=== PATIENT | male | born 1990 ===

== ENCOUNTER 2017-04-27 14:44 | Inpatient (IN) | payer MEDICAID ==
--- NOTE | 2017-04-27 16:37 | ED PDOC ---
HPI: Psych/Substance Abuse Time Seen by Provider: 04/27/17 16:33 Chief Complaint (Nursing): Psychiatric Evaluation Chief Complaint (Provider): pysch eval Additional Complaint(s): 27yo M in ED for eval of depression without SI/HI/hallucinATION. states that he ran our of his pysch medication(ativan) because his insurance doesn't cover the area where he works. when asked if he works he states he currently unemployed- states he has medicaid. states that the insurance is only [place] funded but states he lived in [place] for the past couple fo months and just moved back to [place] then changes story stating he has been living with a friend in [place] for the past 3 months. Pt is alert and oriented. normal speech patterns. Past Medical History Reviewed: Historical Data, Nursing Documentation, Vital Signs Vital Signs: Last Vital Signs Temp 96.5 F L 04/27/17 15:27 Pulse 105 H 04/27/17 15:27 Resp 16 04/27/17 15:27 BP 121/71 04/27/17 15:27 Pulse Ox 97 04/27/17 15:27 - Family History Family History: States: No Known Family Hx - Allergies Allergies/Adverse Reactions: Allergies Allergy/AdvReac Type Severity Reaction Status Date / Time No Known Allergies Allergy Verified 04/27/17 15:27 Review of Systems ROS Statement: Except As Marked, All Systems Reviewed And Found Negative Psych: Positive for: Depression Physical Exam - Reviewed Nursing Documentation Reviewed: Yes Vital Signs Reviewed: Yes - Physical Exam Appears: Positive for: Well, Non-toxic, No Acute Distress Head Exam: Positive for: ATRAUMATIC, NORMAL INSPECTION, NORMOCEPHALIC Skin: Positive for: Normal Color, Warm, DRY Cardiovascular/Chest: Positive for: Regular Rate, Rhythm Respiratory: Positive for: CNT, Normal Breath Sounds Neurologic/Psych: Positive for: Alert, Oriented, Mood/Affect (normal affect) - Laboratory Results Result Diagrams: 04/27/17 19:00 04/27/17 19:16 - ECG O2 Sat by Pulse Oximetry: 97 - Progress ED Course And Treament: pt will get crisis eval. Medical Decision Making Medical Decision Making: pt willbe admitted for depression under kalpesh FERRO pt is medically cleared for admission Disposition - Clinical Impression Clinical Impression: Depression - Patient ED Disposition Is Patient to be Admitted: Yes - Disposition Disposition Time: 20:09 Condition: STABLE Forms: [employer] (Swedish) - Pt Status Changed To: Hospital Disposition Of: Inpatient - Admit Certification Admit to Inpatient:: After my assessment, the patient will require hospitalization for at least two midnights. This is because of the severity of symptoms shown, intensity of services needed, and/or the medical risk in this patient being treated as an outpatient. - POA Present On Arrival: None
[2017-04-27 19:16] LABS: BASO % 0.4 % (0.0-2.0); EOS # 0.1 K/uL (0.0-0.7); EOS % 1.1 % (0.0-4.0); HEMATOCRIT 50.6 % (35.0-51.0); LYMPH # 2.4 K/uL (1.0-4.3); LYMPH % 26.6 % (20.0-40.0); MEAN CELL VOLUME 92.1 fl (80.0-94.0); MEAN CORPUSCULAR HEMOGLOBIN 30.7 pg (27.0-31.0); MEAN CORPUSCULAR HGB CONC 33.3 g/dL (33.0-37.0); MEAN PLATELET VOLUME 8.2 fl (7.2-11.7); MONO # 0.4 K/uL (0.0-0.8); MONO % 4.7 % (0.0-10.0); NEUT % 67.2 % (50.0-75.0); RED CELL DISTRIBUTION WIDTH 13.9 % (11.5-14.5); WHITE BLOOD COUNT 8.9 K/uL (4.8-10.8)
[2017-04-27 19:32] LABS: ALB/GLOB RATIO 1.5 (1.0-2.1); ALCOHOL SERUM 107 mg/dl (0-10); ALKALINE PHOSPHATASE 75 U/L (38-126); ALT/SGPT 32 U/L (21-72); AST/SGOT 28 U/L (17-59); BILIRUBIN,TOTAL 0.6 mg/dl (0.2-1.3); BLOOD UREA NITROGEN 10 mg/dl (9-20); CALCIUM 8.7 mg/dL (8.4-10.2); CARBON DIOXIDE 26 mmol/L (22-30); CHLORIDE 104 mmol/L (98-107); GFR AFRICAN-AMERICAN > 60; GLUCOSE,RANDOM 88 mg/dL (75-110); POTASSIUM 3.9 MMOL/L (3.6-5.0); SODIUM 146 mmol/l (132-148); TOTAL PROTEIN 7.7 G/DL (6.3-8.2)
[2017-04-27 19:42] LABS: RBC URINE < 1 /hpf (0-3); URINE BACTERIA RARE (<OCC); URINE BILIRUBIN NEGATIVE (NEGATIVE); URINE BLOOD NEGATIVE (NEGATIVE); URINE COLOR YELLOW (YELLOW); URINE GLUCOSE (UA) NEG (Normal); URINE KETONE 20 mg/dL (NEGATIVE); URINE LEUKOCYTE ESTERASE TRACE Leu/uL (Negative); URINE PROTEIN NEGATIVE (NEGATIVE); URINE UROBILINOGEN 0.2-1.0 mg/dL (0.2-1.0); WBC URINE 4 /hpf (0-5)
[2017-04-27] MEDS ORDERED: DiphenhydrAMINE 50 mg/ml Inj IM PRN (21:49)
[2017-04-27] MEDS ORDERED: Alum-Mag Hydrox-Simethicone Susp (30 mL) PO PRN (21:49)
[2017-04-27] MEDS ORDERED: Magnesium Hydroxide Susp 30 ml UD PO PRN (21:49)
[2017-04-27] MEDS ORDERED: Bismuth Subsalicylate 262 mg/15 ml Sus (240 ml) PO PRN (21:52)
--- NOTE | 2017-04-27 22:35 | PCM.BM ---
Treatment Plan Problems - Problems identified on initial assessmt Hopelessness/helplessness Date Initiated: 04/27/17 Time Initiated: 22:34 Assessment reference: NA Status: Active Feelings of worthlessness Date Initiated: 04/27/17 Time Initiated: 22:35 Assessment reference: NA Status: Active Treatment assets and liabiliti Patient Assests: cooperative, ADL independent, physically healthy, negotiates basic needs, cognitively intact Patient Liabilities: live alone, financial problems, poor support system, medical problems - Milieu Protocol Maintain good personal hygiene: daily Encourage regular showers, daily Remind patient to perform daily oral care Maintain personal safety: every shift Educate patient to report safety concerns to staff, every shift Monitor environment for contraband/sharps Medication safety: Monitor for expected outcome, potential side effects: every shift, Assess barriers to learning: every shift, Assess readiness for medication education: every shift
[2017-04-28 07:44] LABS: T4 8.3 ug/dl (5.5-11.0)
[2017-04-28 07:58] LABS: THYROID STIMULATING HORMONE 0.49 mIU/ML (0.46-4.68)
--- NOTE | 2017-04-28 08:08 | CARD ---
APPROVED REPORT EKG Measurement Heart [id number] <Conclusion> Normal sinus rhythm with sinus arrhythmia Incomplete right bundle branch block Left anterior fascicular block Abnormal ECG
[2017-04-28 09:19] VITALS: RESP 18
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
--- NOTE | 2017-04-28 13:46 | RAD ---
HISTORY: Routine COMPARISON: No prior. TECHNIQUE: Chest PA and lateral FINDINGS: LUNGS: No active pulmonary disease. PLEURA: No significant pleural effusion identified. No pneumothorax apparent. CARDIOVASCULAR: Normal. OSSEOUS STRUCTURES: No significant abnormalities. VISUALIZED UPPER ABDOMEN: Normal. OTHER FINDINGS: None. IMPRESSION: No active disease.
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
[2017-04-28] MEDS ORDERED: Albuterol-Ipratrop 3 mg / 0.5 (3 ml) UD INH PRN (15:40)
--- NOTE | 2017-04-29 10:31 | PCM.PYCHPN ---
Psychiatric Progress Note - Psychiatric Progress Note Patient seen today, length of contact: Patient evaluated, case discussed w/ team , chart reviewed Patient Chief Complaint: "I'm very anxious" Problems Identified/Issues Discussed: Patient reports that he continues to be depressed and anxious. He is goal oriented and mentioned an interview he would like to attend on Monday. No ideation to harm self or others. No psychosis. We discussed continued titration of Abilify and the patient was agreeable. R/B/SE reviewed. He reports difficulty sleeping at night. No adverse effects to medications reported. Medication Change: Yes (Increase Abilify to 10 mg PO Daily) Medical Record Reviewed: Yes Consults ordered or reviewed: Medicine consult Mental Status Examination - Cognitive Function Orientation: Person, Place, Situation, Time Memory: Intact Attention: WNL Concentration: WNL Association: WNL Fund of Knowledge: [facility] Decription of patient's judgement and insights: Fair I/J - Mood Mood: Depressed, Anxious - Affect Affect: Depressed - Speech Speech: Appropriate - Formal Thought Process Formal Thought Process: No Impairment Psychotic Thoughts and Behaviors: NO AH/VH/paranoia/delusions - Suicidal Ideation Suicidal Ideation: No - Homicidal Ideation Homicidal Ideation: No Goal/Treatment Plan - Goal/Treatment Plan Need for Continued Stay: Remain at risks for inpatient hospitalization, Severe depression anxiety Progress Toward Problem(s) and Goals/Treatment Plan: Bipolar Disorder w/ Depression; Alcohol Use Disorder -Individual and group therapy -Increase Abilify to 10 mg PO Daily -Disposition planning Estimated Date of D/C: 05/02/17
--- NOTE | 2017-04-30 08:29 | PCM.PYCHPN ---
Psychiatric Progress Note - Psychiatric Progress Note Patient seen today, length of contact: Patient evaluated, case discussed w/ team , chart reviewed Patient Chief Complaint: "I'm very anxious" Problems Identified/Issues Discussed: Patient reports that he feels less depressed, but continues to feel anxious. We discussed starting Vistaril 25 mg PO TID PRN anxiety, r/b/se reviewed. He continue to be goal oriented. No ideation to harm self or others. No psychosis. No adverse effects to medications reported. Medication Change: Yes (Start Vistaril 25 mg PO TID PRN anxiety) Medical Record Reviewed: Yes Consults ordered or reviewed: Medicine consult Mental Status Examination - Cognitive Function Orientation: Person (Anxious at times), Place, Situation, Time Memory: Intact Attention: WNL Concentration: WNL Association: WNL Fund of Knowledge: [facility] Decription of patient's judgement and insights: Fair I/J - Mood Mood: Depressed, Anxious - Affect Affect: Broad - Speech Speech: Appropriate - Formal Thought Process Formal Thought Process: No Impairment Psychotic Thoughts and Behaviors: NO AH/VH/paranoia/delusions - Suicidal Ideation Suicidal Ideation: No - Homicidal Ideation Homicidal Ideation: No Goal/Treatment Plan - Goal/Treatment Plan Need for Continued Stay: Remain at risks for inpatient hospitalization, Severe depression anxiety Progress Toward Problem(s) and Goals/Treatment Plan: Bipolar Disorder w/ Depression; Alcohol Use Disorder -Individual and group therapy -Continue Abilify 10 mg PO Daily -Start Vistaril 25 mg PO TID PRN anxiety -Disposition planning Estimated Date of D/C: 05/02/17
[2017-04-30 10:58] VITALS: O2SAT 99
[2017-04-30 16:40] VITALS: BP 115/72; PULSE 72; TEMP 97.4
--- NOTE | 2017-05-01 09:23 | PCM.PYCHDC ---
Mental Status Examination - Mental Status Examination Orientation: Person, Place, Situation, Time Memory: Intact Mood: Neutral Affect: Broad Speech: Appropriate Attention: WNL Concentration: WNL Association: WNL Fund of Knowledge: WNL Formal Thought Process: No Impairment Description of patient's judgement and insight: Good I/J Psychotic Thoughts and Behaviors: NO AH/VH/paranoia/delusions Suicidal Ideation: No Current Homicidal Ideation?: No Discharge Summary - Discharge Note Reason for Hospitalization: 27 y/o male admitted himself into the hospital for depression. Patient reported suicidal ideation prior to admission, but was able to contract for safety upon admission. Pt states he has a history of [place] treatment but since he is in the process of moving he does not have a regular doctor to prescribe him his meds, and he has had issues with insurance. Pt admits to experiencing withdrawal symptoms when he runs out of [place], including moderate to severe insomnia. Pt states he uses an inhaler when necessary for his asthma but it does not flare up often. Pt denies any F/C/N/V/CP/SOB. Pt denies [place]. Pt denies diarrhea or constipation. Pt has no physical complaints at this time. PMH: asthma PSH: denies All: NKDA Social: frequent EtOH use, daily marijuana use. Denies cigarette or other illicit drug use Family: does not currently have home, moved recently from family home in [place], staying at various friends' homes Consultations:: List each consultation separately and include: 1. Reason for request. 2. Findings. 3. Follow-up Consultations: Medicine consult Summary of Hospital Course include:: 1. Description of specific treatment plan utilized for patients during their course of treatmen. 2. Summarize the time- course for resolution of acute symptoms and/or regressed behaviors. 3. Describe issues identified and worked on during hospitalization. 4. Describe medication utilized. 5. Describe medical problems identified and treated. 6. Reassessment of suicide risk Summary of Hospital Course: Patient was admitted to the hospital. Individual and group therapy were provided. Psychoeducation provided re: alcohol and cannabis abuse. Patient was stabilized on Abilify 10 mg PO Daily and Vistaril 25 mg PO BID PRN anxiety. Patient does not currently have any suicidal ideation. His mood is stable. He is goal oriented and requesting to be discharged because he would like to go a job interview. He has full range of affect and is calm, cooperative and pleasant. We discussed the importance of follow-up psychiatric treatment. - Final Diagnosis (DSM 5) Condition upon Discharge: STABLE DSM 5: Bipolar Disorder; Alcohol Use Disorder Disposition: HOME/ ROUTINE Follow-up Treatment Plan: Bipolar Disorder w/ Depression; Alcohol Use Disorder -Individual and group therapy -Continue Abilify 10 mg PO Daily -Continue Vistaril 25 mg PO BID PRN anxiety -Discharge with outpatient follow-up Prescriptions/Medication Reconciliation: ARIPiprazole [Abilify] 10 mg PO DAILY #30 tab hydrOXYzine Pamoate [Vistaril] 25 mg PO BID PRN #60 cap PRN Reason: Anxiety - Smoking Cessation Smoking Cessation Medication prescribed: No Reason for not providing: Not indicated - Antipsychotic Medications Pt discharged on 2 or more routine antipsychotic medications: No
== END 2017-05-01 11:33 | disposition home or self-care (01) | DRG 430 ==
LOC: H.ER 14:44 → H.ERHOLD 20:08 → H.PSYCH 21:40
PROVIDERS: ADMIT Psychiatry & Neurology Psychiatry; ATTEND Psychiatry & Neurology Psychiatry
PROC: GZHZZZZ Group Psychotherapy (ICD-10-PCS; principal; 2017-04-28)
PROC: GZ51ZZZ Individual Psychotherapy, Behavioral (ICD-10-PCS; 2017-04-28)
DX: F31.81 Bipolar II disorder (principal); R45.851 Suicidal ideations; Z91.14 Patient's other noncompliance with medication regimen; F10.10 Alcohol abuse, uncomplicated; F12.10 Cannabis abuse, uncomplicated; G47.00 Insomnia, unspecified; J45.909 Unspecified asthma, uncomplicated; Z91.19 Patient's noncompliance with other medical treatment and regimen; Z59.9 Problem related to housing and economic circumstances, unspecified; Y90.5 Blood alcohol level of 100-119 mg/100 ml